=== PATIENT | male | born 1950 | race Caucasian/White ===

== ENCOUNTER 2018-08-03 12:50 | Emergency (ER) | payer OTHER, MEDICARE ==
--- NOTE | 2018-08-03 12:56 | PDOC ---
History of Present Illness - General Chief Complaint: Respiratory Stated Complaint: COUGH, COLD SX Time Seen by Provider: 08/03/18 12:55 - History of Present Illness Initial Comments: 67 year old male with PMH of MDD presenting with productive cough, fevers, and chills for the past day. This is all three days after resolution of a milder respiratory infection. States that he had a mild, dry cough one week ago which resolved over the course of 3-4 days and he was well for 2-3 days. Last night his symptoms came back but were much worse including productive cough, subjective fever, chills, and generally feeling weak. He denies travel or cigarette smoking history nut the does smoke marijuana on occasion. Denies SOB, headache, myalgias, neck stiffness, or other symptoms. 08/03/18 13:13 Past History - Past Medical History Allergies/Adverse Reactions: Allergies Allergy/AdvReac Type Severity Reaction Status Date / Time No Known Allergies Allergy Verified 10/25/15 18:03 Home Medications: Ambulatory Orders Bupropion HCl [Wellbutrin Xl] 450 mg PO DAILY 10/25/15 Escitalopram Oxalate [Lexapro -] 20 mg PO ONCE 10/25/15 Tamsulosin HCl [Flomax -] 0.8 mg PO DAILY 10/25/15 Amoxicillin - [Amoxicillin 500mg Capsule -] 500 mg PO TID 10 Days #30 capsule Azithromycin 250 mg PO DAILY 4 Days #4 tablet 08/03/18 Tadalafil [Cialis] 2.5 mg PO ASDIR 08/03/18 Disorders: Yes (BPH) Psychiatric Problems: Yes (Depression) - Suicide/Smoking/Psychosocial Hx Smoking History: Never smoked Hx Alcohol Use: No Drug/Substance Use Hx: No Substance Use Type: None Hx Substance Use Treatment: No Review of Systems - Review of Systems Constitutional: No: Chills, Diaphoresis, Fever HEENTM: No: Eye Pain, Blurred Vision, Tearing Respiratory: Yes: Cough. No: Shortness of Breath, Wheezing Cardiac (ROS): Yes: Chest Pain. No: Irregular Heart Rate, Lightheadedness, Palpitations, Syncope ABD/GI: No: Diarrhea : No: Burning, Dysuria, Discharge Musculoskeletal: No: Back Pain, Joint Pain Integumentary: No: Bruising Neurological: No: Headache, Numbness, Paresthesia Psychiatric: Yes: Depression. No: Anxiety Endocrine: No: Flushing Hematologic/Lymphatic: No: Anemia, Blood Clots, Easy Bleeding *Physical Exam - Physical Exam General Appearance: Yes: Nourished, Appropriately Dressed. No: Apparent Distress HEENT: positive: EOMI, MARISOL, Normal ENT Inspection, Normal Voice Neck: positive: Trachea midline, Normal Thyroid, Supple. negative: Tender, Rigid Respiratory/Chest: positive: Lungs Clear, Normal Breath Sounds. negative: Chest Tender, Respiratory Distress, Accessory Muscle Use Cardiovascular: positive: Regular Rhythm, Regular Rate Gastrointestinal/Abdominal: positive: Normal Bowel Sounds, Flat, Soft. negative : Tender Lymphatic: negative: Adenopathy, Tenderness Musculoskeletal: positive: Normal Inspection Extremity: positive: Normal Capillary Refill, Normal Inspection, Normal Range of Motion. negative: Tender Integumentary: positive: Normal Color, Dry, Warm Neurologic: positive: Fully Oriented, Alert, Normal Mood/Affect, Normal Response , Motor Strength / ED Treatment Course - LABORATORY CBC & Chemistry Diagram: 08/03/18 13:30 08/03/18 13:30 Medical Decision Making - Medical Decision Making 67 year old male with 1.5 weeks of respiratory symptoms that improved then acutely worsened lat night with cough productive of green sputum. CXR concerning for left sided PNA. His labs are demonstrating minor leukocytosis but otherwise unconcerning. Will DC with azithromycin and amoxicillin TID. 08/03/18 15:37 *DC/Admit/Observation/Transfer Diagnosis at time of Disposition: PNA (pneumonia) Qualifiers: Pneumonia type: due to unspecified organism Laterality: left Lung location: lower lobe of lung Qualified Code(s): J18.1 - Lobar pneumonia, unspecified organism - Discharge Dispostion Disposition: HOME Condition at time of disposition: Improved Decision to Admit order: No - Prescriptions Prescriptions: Amoxicillin - [Amoxicillin 500mg Capsule -] 500 mg PO TID 10 Days #30 capsule Azithromycin 250 mg PO DAILY 4 Days #4 tablet - Referrals - Patient Instructions Additional Instructions: Please take your antibiotics as instructed. Please follow up with your PCP next week. Please return to the ED if the fever does not get better in a few days or if it gets worse or if you have other new or concerning symptoms. - Post Discharge Activity
[2018-08-03 13:13] VITALS: BMI 28.7
--- NOTE | 2018-08-03 13:15 | PDOC ---
Attending Attestation - Resident Resident Name: Laura Ontiveros - ED Attending Attestation I have performed the following: I have examined & evaluated the patient, The case was reviewed & discussed with the resident, I agree w/resident's findings & plan, Exceptions are as noted - HPI HPI: 08/03/18 13:12 67 year old male hx of BPH, depression p/w cough x 1 week. States 1 week ago, developed URI like symptoms that gradually improved. However, yesterday, reported symptoms worsened, and now with fever and greenish productive cough. Mild chest discomfort with cough but no SOB. No sick contacts or recent travels. - Physicial Exam PE: 08/03/18 13:13 GENERAL: Awake, alert, and fully oriented, in no acute distress, warm to touch HEAD: No signs of trauma EYES: EOMI, sclera anicteric, conjunctiva clear ENT: Auricles normal inspection, hearing grossly normal, nares patent, Moist mucosa NECK: Normal ROM, supple, no lymphadenopathy, JVD, or masses LUNGS: Breath sounds equal, clear to auscultation bilaterally. No wheezes, and no crackles HEART: Regular rate and rhythm, normal S1 and S2, no murmurs, rubs or gallops EXTREMITIES: Normal range of motion, no edema. No clubbing or cyanosis. No cords, erythema, or tenderness NEUROLOGICAL: Cranial nerves II through XII grossly intact. Normal speech SKIN: Warm, Dry, normal turgor, no rashes or lesions noted. - Medical Decision Making 08/03/18 13:14 Vital Signs Temp Pulse Resp BP Pulse Ox 102.8 F H 105 H 20 162/88 94 L 08/03/18 12:50 08/03/18 12:50 08/03/18 12:50 08/03/18 12:50 08/03/18 12:50 Impression: Fever with cough. R/o Pneumonia. Needs chest xray, labs including cultures. Differential includes influenza, viral syndrome, bronchitis, other infectious pathology. Anti-pyretics, IVF, reassess. 08/03/18 15:32 CBC, BMP 08/03/18 13:30 08/03/18 13:30 CMP Sodium 132 mmol/L (136-145) L 08/03/18 13:30 Potassium 4.1 mmol/L (3.5-5.1) 08/03/18 13:30 Chloride 99 mmol/L (98-107) 08/03/18 13:30 Carbon Dioxide 21 mmol/L (21-32) 08/03/18 13:30 Anion Gap 12 MMOL/L (8-16) 08/03/18 13:30 BUN 19 mg/dl (7-18) H 08/03/18 13:30 Creatinine 0.7 mg/dl (0.55-1.3) 08/03/18 13:30 Creat Clearance w eGFR 111.82 (>60) 08/03/18 13:30 Random Glucose 117 mg/dl (74-106) H 08/03/18 13:30 Calcium 9.2 mg/dl (8.5-10) 08/03/18 13:30 Total Bilirubin 0.7 mg/dl (0.2-1) 08/03/18 13:30 AST 21 U/L (15-37) 08/03/18 13:30 ALT 19 U/L (13-61) 08/03/18 13:30 Alkaline Phosphatase 74 U/L (45-117) 08/03/18 13:30 Troponin I < 0.03 ng/ml (0.00-0.05) 08/03/18 13:30 Total Protein 7.1 g/dl (6.4-8.2) 08/03/18 13:30 Albumin 3.9 g/dl (3.4-5.0) 08/03/18 13:30 Chest xray reviewed. ?Retrocardiac opacity? The patient is breathing comforable and overall well-appearing. The pt has a WBC of 12.7 Given that he has this cough x 1 week, will treat as early pneumonia. Will initiate azithromycin and amoxicillin. Will discharge with albuterol PRN Will prescribe tamiflu, however, given that the results have not resulted, advised pt to call back in several hours for the results. If positve, then pt should take the tamiflu. Heart Score/ECG Review #1 ECG reviewed & interpreted by me at: 14:00 08/03/18 14:02 NSR 94, rightward axis deviation, no std/winter, QTC 440 msec
[2018-08-03] MEDS ORDERED: ACETAMINOPHEN 1000 MG/100 ML VIAL (NON FORMULARY) IVPB ONE (13:18)
[2018-08-03] MEDS ORDERED: ALBUTEROL SO4 2.5/IPRATROPIUM 0.5 INH SOL 3 ML VIAL.NEB. NEB ONE ×2 (13:37→13:45)
[2018-08-03] MEDS ORDERED: ACETAMINOPHEN INJECTION 100 ML IVPB ONE (13:45)
[2018-08-03] MEDS ORDERED: AZITHROMYCIN IVPB 500 MG in DEXTROSE 5%-WATER - 250 ML IVPB ONE (14:02)
[2018-08-03] MEDS ORDERED: AZITHROMYCIN 500 MG VIAL IVPB ONE (14:17)
[2018-08-03 14:27] LABS: BASO % 0.2 % (0-2.0); EOS % 0.1 % (0-4.5); HEMATOCRIT 40.7 % (35.4-49); HEMOGLOBIN 13.9 GM/dl (11.7-16.9); LYMPH % 4.9 % (8-40); MCH 31.7 pg (25.7-33.7); MCHC 34.1 g/dl (32.0-35.9); MEAN CELL VOLUME 93.1 fl (80-96); MEAN PLT VOLUME 8.9 fl (7.5-11.1); NEUT % 88.8 % (42.8-82.8); PLATELET COUNT 254 K/MM3 (134-434); RBC 4.37 M/mm3 (4.00-5.60); RDW 12.1 % (11.9-15.9); WHITE BLOOD COUNT 12.7 K/mm3 (4.0-10.8)
[2018-08-03 15:13] LABS: ALBUMIN 3.9 g/dl (3.4-5.0); ALK PHOS 74 U/L (45-117); ANION GAP 12 MMOL/L (8-16); BILIRUBIN,TOTAL 0.7 mg/dl (0.2-1); BLOOD UREA NITROGEN 19 mg/dl (7-18); CALCIUM 9.2 mg/dl (8.5-10); CHLORIDE 99 mmol/L (98-107); CO2 21 mmol/L (21-32); CREATININE 0.7 mg/dl (0.55-1.3); GLUCOSE,RANDOM 117 mg/dl (74-106); POTASSIUM 4.1 mmol/L (3.5-5.1); SGOT/AST 21 U/L (15-37); SGPT/ALT 19 U/L (13-61); SODIUM 132 mmol/L (136-145); TOT PROT 7.1 g/dl (6.4-8.2)
[2018-08-03] MEDS ORDERED: SODIUM CHLORIDE 0.9% 500 ML INFUS.BAG IV ONE (15:47)
[2018-08-03 16:09] LABS: VENOUS PC02 34.6 mmHg (41-51); VENOUS PH 7.46 (7.31-7.41); VENOUS PO2 49.9 mmHg (30-40)
[2018-08-03 17:37] VITALS: BP 121/55; PULSE 79; TEMP 99.5
--- NOTE | 2018-08-04 08:32 | EKG ---
Test Reason : Blood Pressure : / mmHG Vent. Rate : 094 BPM Atrial Rate : 094 BPM P-R Int : 150 ms QRS Dur : 098 ms QT Int : 352 ms P-R-T Axes : 056 103 026 degrees QTc Int : 440 ms NORMAL SINUS RHYTHM POSSIBLE LEFT ATRIAL ENLARGEMENT RIGHTWARD AXIS BORDERLINE ECG WHEN COMPARED WITH ECG OF 26-OCT-2015 08:45, VENT. RATE HAS INCREASED BY 33 BPM Confirmed by MD ZORAIDA, OLIVIA ([id number]) on 08/04/2018 8:32:01 AM Referred By: SANTOS CHINCHILLA Confirmed By:OLIVIA CONWAY MD
== END 2018-08-03 16:20 | disposition home or self-care (01) ==
LOC: FER 12:50 → SUPCPDRO 12:50 → FER 16:20
PROC: 3E03329 Introduction of Other Anti-infective into Peripheral Vein, Percutaneous Approach (ICD-10-PCS; principal; 2018-08-03)
PROC: 3E033NZ Introduction of Analgesics, Hypnotics, Sedatives into Peripheral Vein, Percutaneous Approach (ICD-10-PCS; 2018-08-03)
PROC: 3E0337Z Introduction of Electrolytic and Water Balance Substance into Peripheral Vein, Percutaneous Approach (ICD-10-PCS; 2018-08-03)
DX: J18.1 Lobar pneumonia, unspecified organism (principal); N40.0 Benign prostatic hyperplasia without lower urinary tract symptoms; F32.9 Major depressive disorder, single episode, unspecified
CPT/HCPCS: 36415; 71046-TC-FY; 80053; 82803; 83605; 84484; 85025; 87040; 87804; 93005; 96365; 96375; 99285-25; J0131

== ENCOUNTER 2022-04-13 16:08 | Emergency (ER) | payer OTHER, MEDICARE ==
[2022-04-13 16:20] VITALS: BP 118/59; PULSE 72; RESP 20; TEMP 98.3; BMI 28.4
== END 2022-04-13 17:55 | disposition home or self-care (01) ==
LOC: FER 16:08
DX: R33.9 Retention of urine, unspecified (principal); K59.00 Constipation, unspecified
CPT/HCPCS: 99283-25

== ENCOUNTER 2022-04-20 11:30 | Observation (INO) | payer OTHER, MEDICARE ==
[2022-04-20] MEDS ORDERED: SODIUM CHLORIDE 0.9% 500 ML INFUS.BAG IV ONE (11:49)
[2022-04-20] MEDS ORDERED: CEFTRIAXONE 1 GM in DEXTROSE 5%-WATER - 50 ML IVPB ONE (11:49)
[2022-04-20] MEDS ORDERED: ACETAMINOPHEN 1000 MG/100 ML BAG IVPB ONE (11:57)
[2022-04-20] MEDS ORDERED: LIDOCAINE HCL 2% JELLY 10 ML CARTRIDGE ONE (12:00)
[2022-04-20] MEDS ORDERED: LIDOCAINE HCL 2% JELLY 10 ML CARTRIDGE UR ONE (12:27)
[2022-04-20] MEDS ORDERED: cefTRIAXone SODIUM 1 GM VIAL ONE (12:35)
[2022-04-20] MEDS ORDERED: ACETAMINOPHEN INJECTION 100 ML IVPB ONE ×2 (12:35→12:59)
[2022-04-20 12:52] LABS: HEMATOCRIT 41.7 % (35.4-49); HEMOGLOBIN 14.2 G/dL (11.7-16.9); MCH 31.3 pg (25.7-33.7); MEAN CELL VOLUME 91.9 fl (80-96); MEAN PLT VOLUME 7.7 fl (7.5-11.1); PLATELET COUNT 300.6 10^3/uL (134-434); RBC 4.54 10^6/uL (4.00-5.60); WHITE BLOOD COUNT 14.2 10^3/uL (4.0-10.8)
[2022-04-20 12:57] LABS: PLATELET ESTIMATE ADEQUATE
[2022-04-20 13:00] LABS: ALBUMIN 3.8 g/dl (3.4-5.0); BILIRUBIN,TOTAL 0.8 mg/dl (0.2-1); CALCIUM 9.3 mg/dl (8.5-10); CREATININE 0.9 mg/dl (0.55-1.3); EPITHELIAL CELLS FEW /hpf; TOT PROT 7.7 g/dl (6.4-8.2)
[2022-04-20 13:49] LABS: VENOUS BASE EXCESS 2.6 mmol/L (-2-2); VENOUS O2 SATURATION 33.8 % (70-80); VENOUS PCO2 55.8 mmHg (38-52); VENOUS PH 7.342 (7.310-7.410)
[2022-04-20 16:09] VITALS: BMI 38.2
[2022-04-20] MEDS ORDERED: traMADol HCL 50 MG TABLET PO PRN (16:57)
[2022-04-20] MEDS ORDERED: ACETAMINOPHEN 500 MG TABLET (FP) PO PRN (17:00)
[2022-04-20] MEDS ORDERED: BUPROPION HCL 300 MG PO SCH (22:00)
[2022-04-21 00:05] VITALS: RESP 17
[2022-04-21 05:15] VITALS: BP 153/72; PULSE 76; TEMP 99.8
[2022-04-21] MEDS ORDERED: TAMSULOSIN HCL 0.4 MG CAP PO SCH (08:30)
[2022-04-21 09:20] LABS: CALCIUM 8.8 mg/dl (8.5-10); CREATININE 0.8 mg/dl (0.55-1.3); PHOSPHOROUS 3.4 mg/dl (2.5-4.9)
[2022-04-21] MEDS ORDERED: CEFTRIAXONE 1 GM in DEXTROSE 5%-WATER - 50 ML IVPB SCH (10:00)
[2022-04-21] MEDS ORDERED: ESCITALOPRAM OXALATE 20 MG TABLET PO SCH (10:00)
[2022-04-21] MEDS ORDERED: ENOXAPARIN NA (PORCINE) 40 MG/0.4 ML DISP.SYRIN SQ SCH (10:00)
[2022-04-21 10:17] LABS: BASO % 0.4 % (0-2.0); EOS % 0.9 % (0-4.5); HEMATOCRIT 37.1 % (35.4-49); HEMOGLOBIN 12.3 GM/dL (11.7-16.9); LYMPH % 11.9 % (8-40); MCH 30.6 pg (25.7-33.7); MCHC 33.1 g/dl (32.0-35.9); MEAN CELL VOLUME 92.6 fl (80-96); MEAN PLT VOLUME 8.1 fl (7.5-11.1); MONO % 9.2 % (3.8-10.2); NEUT % 77.6 % (42.8-82.8); PLATELET COUNT 306 10^3/uL (134-434); RBC 4.01 M/mm3 (4.00-5.60); RDW 13.3 % (11.9-15.9); WHITE BLOOD COUNT 14.3 K/mm3 (4.0-10.0)
== END 2022-04-21 10:45 | disposition left against medical advice (07) ==
LOC: FER 11:30 → FM/S 13:01 → INTOOBSV 13:01 → FM/S 14:28
PROVIDERS: ADMIT Internal Medicine; ATTEND Internal Medicine
PROC: 3E033NZ Introduction of Analgesics, Hypnotics, Sedatives into Peripheral Vein, Percutaneous Approach (ICD-10-PCS; principal; 2022-04-20)
PROC: 3E03329 Introduction of Other Anti-infective into Peripheral Vein, Percutaneous Approach (ICD-10-PCS; 2022-04-20)
PROC: 3E023GC Introduction of Other Therapeutic Substance into Muscle, Percutaneous Approach (ICD-10-PCS; 2022-04-20)
PROC: 3E0337Z Introduction of Electrolytic and Water Balance Substance into Peripheral Vein, Percutaneous Approach (ICD-10-PCS; 2022-04-20)
DX: N39.0 Urinary tract infection, site not specified (principal); E66.8 Other obesity; Z68.38 Body mass index [BMI] 38.0-38.9, adult; N40.0 Benign prostatic hyperplasia without lower urinary tract symptoms; F32.9 Major depressive disorder, single episode, unspecified
CPT/HCPCS: 0241U-QW; 36415; 80048; 80053; 81003; 81015; 82803; 83605; 83735; 84100; 85025; 85027; 87040; 87086; 87186; 93005; 96365; 96367; 96372; 96375; 99291; G0378

== ENCOUNTER 2022-05-16 10:59 | Emergency (ER) | payer OTHER, MEDICARE ==
[2022-05-16 11:06] VITALS: BP 142/77; PULSE 73; RESP 18; TEMP 98.6; BMI 28.7
[2022-05-16] MEDS ORDERED: FLUORESCEIN NA 1 EA STRIP OU ONE (12:04)
[2022-05-16] MEDS ORDERED: TETRACAINE 0.5% HCL 0.6ML DROPPER.BOTTLE OU ONE (12:05)
[2022-05-16] MEDS ORDERED: TETRACAINE 0.5% OPHTH SOLN 2 ML BOTTLE ONE (12:06)
[2022-05-16] MEDS ORDERED: FLUORESCEIN NA 1 EA STRIP ONE (12:06)
== END 2022-05-16 12:30 | disposition home or self-care (01) ==
LOC: FER 10:59
DX: H10.33 Unspecified acute conjunctivitis, bilateral (principal)
CPT/HCPCS: 0241U-QW; 71046-TC-FY; 99284-25